=== PATIENT | female | born 1990 | race Hispanic/Latino ===

== ENCOUNTER 2017-07-11 19:22 | Observation (INO) | payer MEDICAID ==
[~2017-07-11] VITALS: Ht 170.2 cm; Wt 117.9 kg
[2017-07-11 19:30] VITALS: BP 174/86
[2017-07-11] MEDS ORDERED: LACTATED RINGERS 1000ML IV PRN (19:30)
[2017-07-11 19:44] LABS: BILIRUBIN,URINE Negative (NEGATIVE); COLOR,URINE Yellow (YELLOW); GLUCOSE, URINE (UA) Negative (NEGATIVE); KETONES,URINE Negative (NEGATIVE); LEUKOCYTE ESTERASE ,URINE Large (NEGATIVE); NITRATE,URINE Negative (NEGATIVE); OCCULT BLOOD,URINE Negative (NEGATIVE); PROTEIN,URINE Negative (NEGATIVE)
[2017-07-11 19:45] LABS: APPEARANCE,URINE SLIGHTLY CLOUDY (CLEAR)
[2017-07-11 19:49] LABS: AMPHET/METH SCREEN,URINE NEGATIVE (NEGATIVE); BARBITURATE SCREEN, URINE NEGATIVE (NEGATIVE); BENZODIAZEPINES SCREEN,URINE NEGATIVE (NEGATIVE); CANNABINOID SCREEN,URINE POSITIVE (NEGATIVE); COCAINE SCREEN,URINE NEGATIVE (NEGATIVE); OPIATE SCREEN,URINE NEGATIVE (NEGATIVE); PHENCYCLIDINE SCREEN,URINE NEGATIVE (NEGATIVE)
[2017-07-11 19:55] LABS: RBC,URINE 0-1 /HPF (0-1)
[2017-07-11 19:56] LABS: BACTERIA,URINE Few /HPF (None Seen); TRICHOMONAS,URINE Few /LPF (None Seen)
[2017-07-11 19:57] LABS: SQUAMOUS EPITHELIAL CELL,UR Moderate /HPF (0-2)
[2017-07-11] MEDS ORDERED: LACTATED RINGERS 1000ML 1,000 ML IV ONE (20:30)
== END 2017-07-11 21:20 | disposition home or self-care (01) ==
LOC: EDH 19:22 → LDH 19:23
PROVIDERS: ADMIT Obstetrics & Gynecology; ATTEND Obstetrics & Gynecology
DX: O62.9 Abnormality of forces of labor, unspecified (principal); Z3A.35 35 weeks gestation of pregnancy
CPT/HCPCS: 80305; 81001; 99285; G0378 ×2; J7120; 96360